=== PATIENT | male | born 1965 | race African-American/Black ===

== ENCOUNTER 2019-08-04 15:16 | Emergency (ER) | payer MEDICAID ==
[~2019-08-04] VITALS: Ht 175.3 cm; Wt 92.0 kg
[2019-08-04 15:22] VITALS: BP 117/82
[2019-08-04] MEDS ORDERED: HYDROCODONE/ACETAMINOPHEN 5/325MG TABLET PO ONE (15:45)
[2019-08-04] MEDS ORDERED: COLCHICINE 0.6MG TABLET PO ONE (15:45)
[2019-08-04] MEDS ORDERED: KETOROLAC 60MG/2ML VIAL IM ONE (15:45)
== END 2019-08-04 18:30 | disposition home or self-care (01) ==
LOC: ER 15:16
DX: M10.9 Gout, unspecified (principal); I10 Essential (primary) hypertension; Z88.0 Allergy status to penicillin
CPT/HCPCS: 96372; 99283; J1885

== ENCOUNTER 2019-09-21 12:01 | Emergency (ER) | payer MEDICAID ==
[~2019-09-21] VITALS: Ht 175.3 cm; Wt 89.0 kg
[2019-09-21 12:06] VITALS: BP 145/84
[2019-09-21] MEDS ORDERED: KETOROLAC 30MG/ML VIAL IM ONE (12:45)
[2019-09-21] MEDS ORDERED: HYDROCODONE/ACETAMINOPHEN 5/325MG TABLET PO ONE (12:45)
== END 2019-09-21 13:24 | disposition home or self-care (01) ==
LOC: ER 12:01
DX: M79.641 Pain in right hand (principal); M25.562 Pain in left knee; M10.9 Gout, unspecified; I10 Essential (primary) hypertension; Z88.0 Allergy status to penicillin; Z91.14 Patient's other noncompliance with medication regimen
CPT/HCPCS: 96372; 99283; J1885